=== PATIENT | female | born 1990 | race Caucasian/White ===

== ENCOUNTER 2018-09-27 17:39 | Inpatient (IN) | payer MEDICAID ==
[~2018-09-27] VITALS: Ht 144.8 cm; Wt 58.8 kg
[2018-09-27] MEDS ORDERED: PREN-93 PO (18:03)
[2018-09-27 18:04] VITALS: BP 109/69; PULSE 69; RESP 18; Ht 144.8 cm; Wt 58.8 kg
[2018-09-27] MEDS ORDERED: LACTATED RINGER'S 1,000 ML IV SCH (18:20)
[2018-09-27] MEDS ORDERED: METHYLERGONOVINE 0.2 MG INJ IM PRN (18:30)
[2018-09-27] MEDS ORDERED: LIDOCAINE 1% (MPF) 30 ML INJ INJ PRN (18:30)
[2018-09-27] MEDS ORDERED: AMPICILLIN 2 GM/NS (PMX) 100 ML IV ONE (18:30)
[2018-09-27] MEDS ORDERED: OXYTOCIN 30 UNITS/LR 500 ML IV SCH ×2 (18:30→23:35)
[2018-09-27] MEDS ORDERED: CARBOPROST 250 MCG INJ IM PRN (18:30)
[2018-09-27] MEDS ORDERED: MISOPROSTOL 200 MCG TAB PR PRN (18:30)
[2018-09-27] MEDS ORDERED: OXYTOCIN 30 UNITS/LR 500 ML IV PRN (18:30)
[2018-09-27] MEDS ORDERED: IBUPROFEN 600 MG TAB PO PRN (18:30)
[2018-09-27] MEDS ORDERED: BUTORPHANOL 2 MG INJ IV PRN (18:30)
--- NOTE | 2018-09-27 18:31 | TRIAGE ---
OB Triage Datetime Report Generated by CPN: 09/27/2018 18:31 Datetime: 09/27/2018 18:07 Vaginal Exam Dilatation (cms): 3.0 Effacement (%): 70 Station: -2 Exam By: OZIEL Vaginal Bleeding: None Cervix, Consistency: Soft Cervix, Position: Midposition Datetime: 09/27/2018 18:00 Assessment Type: Triage Maternal Assessment Level of Consciousness: Fully Conscious DTR's/Clonus: DTRs 2+; No Clonus Headache: Denies Blurred Vision: No Respiratory Effort: Unlabored; Regular Rhythm; Equal Expansion Breath Sounds, Left: Clear and Equal Breath Sounds, Right: Clear and Equal Nausea/Vomiting: Denies RUQ Epigastric Pain: Denies Lower Extremities Edema: None Degree: None Upper Extremities Edema: None Degree: None Facial Edema: None Fall Risk Assessment History of Falling: (0) No Secondary Diagnosis: (0) No Ambulatory Aid: (0) Bedrest/Nurse Assist IV Therapy: (0) No Gait: (0) Normal/Bedrest/Immobile Mental Status: (0) Oriented to Own Ability Fall Score: 0 Fall Risk Score Definition: No Risk: No action required Datetime: 09/27/2018 17:56 Time of Arrival: 09/27/2018 17:21 EGA: 37.6 Arrived By: Ambulatory Arrived From: Home Chief Complaint: PT. HERE C/O UC'S SINCE 1400 Movement: Present Contractions: Irregular Rupture of Membranes: Denies Vaginal Bleeding: None Vaginal Discharge: Denies Recent Sexual Intercouse: Denies Abdominal Trauma: Not Applicable Patient Complaints: Contractions; Cramping; Back Pain Time Provider Notified: 09/27/2018 18:20 Provider Notified: LITTLE Initial Plan: EFM/SVE Datetime: 09/27/2018 17:40 Labor Evaluation Monitor Mode: External Heart Rate Monitor Mode: External US
[2018-09-27] MEDS ORDERED: AMPICILLIN 1 GM/NS (PMX) 50 ML IV SCH (22:30)
[2018-09-27] MEDS: OXYTOCIN 30 UNITS/LR 500 ML IV SCH ×2 (23:00→23:36)
--- NOTE | 2018-09-27 23:33 | HP ---
Date/Time of Note Date/Time of Note DATE: 09/27/18 TIME: 23:30 OB - History Hx of Present Free Text/Dictation September 27, 2018 : 2 Para: 1 Spontaneous : 0 Obstetrical Complications: None Other Concerns: 28-year-old G2, P1 with IUP at 37 weeks and 6 days presented in labor. care with Dr. Walker. No records are available except limited labs. GBS is negative. Patient denies any complication during her course. She was 3 cm/70/-2 vertex presentation. She was admitted for labor management. Past Family/Social History * Past Medical, Surgical, Family and Obstetric Histories reviewed from chart. Blood Type: O+ RPR/VDRL: Negative GBS Status: Negative HBsAG: Negative OB Admission Exam Vital Signs Vital Signs Vital Signs Date Temp Pulse Resp B/P (MAP) Pulse Ox O2 O2 Flow FiO2 Time Delivery Rate 09/27/18 98.7 69 18 109/69 Room Air 18:04 (82) Physical Exam HEENT: WNL Lungs: Clear Abdomen: WNL Extremities: Normal Cervical Dilatation: 3cm Effacement: 75% Station: -2 Membranes: Intact Heart Rate: 130's Accelerations: Accelerations Present Decelerations: No Decelerations Varibility: Moderate Contractions on Admission: < 5 Minutes Apart Intensity: Moderate Last 72 hours Lab Results CBC & BMP 09/27/18 18:50 OB Assessment/Plan Other Assessment: IUP at 37 weeks and 6 days Labor GBS negative Patient will be admitted for labor management Anticipate Obtain rest of the labs Epidural she desires when in active labor GARRETT VIEIRA MD September 27, 2018 23:33
--- NOTE | 2018-09-27 23:35 | LDN ---
Date/Time of Note Date/Time of Note DATE: 09/27/18 TIME: 23:33 Delivery Summary September 27, 2018 Weeks of Gestation 37 weeks and 6 days Placenta Delivered: Spontaneously Meconium: none Episiotomy: No Indication for episiotomy N/A Perineal laceration: 1 Laceration repair: First-degree left labial laceration repaired using 3-0 chromic Anesthesia type: None Estimated blood loss: 200 Sponge & Needle done & correct: Yes Any foreign bodies felt in the: No Infant Delivery Information Sex Infant Sex: female Apgars 1 Minute: 8 5 Minute: 9 Suctioning Nose & mouth suctioned at livan: Yes Delee suction performed: Yes Umbilical Cord Umbilical cord with: 3 Vessels Cord presentations: nuchal cord Nuchal cord present X: 1 Cord Blood was obtained: Yes Mother & Baby Disposition Disposition Tight nuchal cord noted at the time of delivery and release Placenta delivered complete and intact Fundus was firm at the end of the delivery First-degree left labial laceration repaired using 3-0 chromic after local infiltration with lidocaine Hemostasis complete GARRETT VIEIRA MD September 27, 2018 23:35
[2018-09-28] MEDS ORDERED: CARBOPROST 250 MCG INJ IM PRN
[2018-09-28] MEDS ORDERED: ACETAMINOPHEN 325 MG TAB PO PRN
[2018-09-28] MEDS ORDERED: NACL 0.9% 3 ML SYG IV SCH
[2018-09-28] MEDS ORDERED: HYDROCODONE/APAP (5/325) TAB PO PRN
[2018-09-28] MEDS ORDERED: OXYTOCIN 30 UNITS/LR 500 ML IV PRN
[2018-09-28] MEDS ORDERED: METHYLERGONOVINE 0.2 MG TAB PO PRN
[2018-09-28] MEDS ORDERED: LANOLIN HPA 1 PKT TOP PRN
[2018-09-28] MEDS ORDERED: MISOPROSTOL 200 MCG TAB PR PRN
[2018-09-28] MEDS ORDERED: ONDANSETRON 4 MG INJ IV PRN
[2018-09-28] MEDS ORDERED: ZOLPIDEM 5 MG TAB PO PRN
[2018-09-28] MEDS ORDERED: DIPHENHYDRAMINE 25 MG CAP PO PRN
[2018-09-28] MEDS ORDERED: METHYLERGONOVINE 0.2 MG INJ IM PRN
[2018-09-28 01:10] VITALS: BP 102/58; PULSE 68; RESP 20
[2018-09-28 04:51] VITALS: BP 115/64; PULSE 70; RESP 20
[2018-09-28] MEDS: IBUPROFEN 600 MG TAB PO SCH ×5 (05:25→23:42)
[2018-09-28 08:00] VITALS: BP 97/60; PULSE 67; RESP 18
[2018-09-28] MEDS: SENNA/DOCUSATE NA (8.6MG/50MG) TAB PO SCH ×3 (08:52→23:42)
[2018-09-28 16:00] VITALS: BP 91/52; PULSE 72; RESP 16
[2018-09-28 20:15] VITALS: BP 97/53; PULSE 71; RESP 18
[2018-09-29 03:56] VITALS: BP 98/51; PULSE 73; RESP 18
[2018-09-29] MEDS: IBUPROFEN 600 MG TAB PO SCH ×3 (05:50→18:34)
[2018-09-29 08:00] VITALS: BP 99/49; PULSE 66; RESP 18
--- NOTE | 2018-09-29 08:23 | DS ---
Date/Time of Note Date/Time of Note DATE: 09/29/18 TIME: 08:22 Discharge Summary Admission/Discharge Info Admit Date/Time September 27, 2018 at 18:15 Discharge Date/Time Discharge Diagnosis term Patient Condition: Stable Hospital Course unremarkable Home Meds Reported Medications Vit No.124/Iron/FA ( Vitamin Tablet) 1 Each Tablet, 1 EACH PO DAILY, TAB 09/27/18 Primary Care Provider Care Physician No Primary Pending Labs Laboratory Tests Test 09/28/18 08:35 White Blood Count 15.3 10^3/ul (4.8-10.8) Red Blood Count 3.71 10^6/ul (4.20-5.40) Hemoglobin 11.3 g/dl (12.0-16.0) Hematocrit 33.1 % (37.0-47.0) Mean Corpuscular Volume 89.2 fl (82.0-101.0) Mean Corpuscular Hemoglobin 30.5 pg (29.0-33.0) Mean Corpuscular Hemoglobin Concent 34.1 g/dl (32.0-37.0) Red Cell Distribution Width 13.1 % (11.5-14.5) Platelet Count 185 10^3/UL (140-415) Mean Platelet Volume 10.7 fl (7.4-10.4) Immature Granulocytes % 0.700 % (0.001-0.429) Neutrophils % 80.2 % (39.0-77.0) Lymphocytes % 11.6 % (15.0-51.0) Monocytes % 6.6 % (0.0-11.0) Eosinophils % 0.7 % (0.0-7.0) Basophils % 0.2 % (0.0-2.0) Nucleated Red Blood Cells % 0.0 /100WBC (0.0-0.0) Immature Granulocytes # 0.100 10^3/ul (0.0-0.031) Neutrophils # 12.3 10^3/ul (1.6-7.5) Lymphocytes # 1.8 10^3/ul (0.8-2.9) Monocytes # 1.0 10^3/ul (0.3-0.9) Eosinophils # 0.1 10^3/ul (0.0-0.5) Basophils # 0.0 10^3/ul (0.0-0.1) Nucleated Red Blood Cells # 0.0 10^3/ul (0.0-0.0) JERE FITCH MD September 29, 2018 08:23
[2018-09-29] MEDS: SENNA/DOCUSATE NA (8.6MG/50MG) TAB PO SCH (08:43)
[2018-09-29] MEDS ORDERED: DIPHTH/TET/ACEL PERTUSS (ADULT) 0.5 ML VIAL IM* ONE (09:00)
[2018-09-29] MEDS ORDERED: VARICELLA VACCINE LIVE/PF 1,350 UNIT/0.5 ML ML SC* ONE (09:00)
[2018-09-29] MEDS ORDERED: MEASLES,MUMPS,RUBELLA VACCINE INJ SC* ONE (09:00)
[2018-09-29 16:30] VITALS: BP 91/53; PULSE 80; RESP 16
--- NOTE | 2018-09-30 19:02 | DELSUM ---
Delivery Summary A-C Datetime Report Generated by CPN: 09/30/2018 19:02 DELIVERY PERSONNEL Crematory Attendant: Sandoval, Jess MATERNAL INFORMATION Delivery Anesthesia: Local Medications in Delivery: 30 UNITS PITOCIN Delivery QBL (ml): 200 Placenta Cultured: No Maternal Complications: None LABOR SUMMARY EDC: 10/12/2018 00:00 No. Babies in Womb: 1 Attempted: No Labor Anesthesia: None LABOR INFORMATION Reason for Induction: Not Applicable Onset of Labor: 09/27/2018 14:00 Complete Dilatation: 09/27/2018 22:25 Oxytocin: N/A Group B Beta Strep: Negative Antibiotics # of Doses: 0 Steroids Given: None Reason Steroids Not Administered: Not Applicable MEMBRANES Membranes Rupture Method: Artificial Rupture of Membranes: 09/27/2018 22:31 Length of Rupture (hr): 0.12 Amniotic Fluid Color: Clear Amniotic Fluid Amount: Moderate Amniotic Fluid Odor: None STAGES OF LABOR Stage 1 hr: 8 Stage 1 min: 25 Stage 2 hr: 0 Stage 2 min: 13 Stage 3 hr: 0 Stage 3 min: 3 Total Time in Labor hr: 8 Total Time in Labor min: 41 VAGINAL DELIVERY Laceration Extension: First Degree Laceration Type: Perineal Laceration Repair: Yes Initial Vag Sponge Count: 10 Final Vag Sponge Count: 10 Initial Vag Sharps Count: 1+1 Final Vag Sharps Count: 2 Sponge Count Correct: Yes; Vaginal Sweep Performed Sharps Count Correct: Yes BABY A INFORMATION Infant Delivery Date/Time: 09/27/2018 22:38 Method of Delivery: Vaginal Born in Route : No : N/A Forceps: N/A Vacuum Extraction: N/A Shoulder Dystocia : N/A SHOULDER DYSTOCIA BABY A Delivery Date/Time: 09/27/2018 22:38 PRESENTATION/POSITION BABY A Presentation: Cephalic Cephalic Presentation: Vertex Breech Presentation: N/A PLACENTA INFORMATION BABY A Placenta Delivery Time : 09/27/2018 22:41 Placenta Method of Delivery: Expressed Placenta Status: Delivered SCORES BABY A Heart Rate 1 min: >100 bpm Resp Effort 1 min: Good Cry Reflex Irritability 1 min: Cough/Sneeze/Pulls Away Muscle Tone 1 min: Active Motion Color 1 min: Blue/Pale Resuscitation Effort 1 min: Tactile Stimulation SCORE 1 MIN: 8 Heart Rate 5 min: >100 bpm Resp Effort 5 min: Good Cry Reflex Irritability 5 min: Cough/Sneeze/Pulls Away Muscle Tone 5 min: Active Motion Color 5 min: Body [place], Extremit Blue Resuscitation Effort 5 min: Tactile Stimulation SCORE 5 MIN: 9 INFORMATION BABY A Gestational Age at Delivery: 37.6 Gestational Status: Early Term- 37- 38.6 Weeks Infant Outcome : Liveborn Condition : Stable Infant Sex: Female IDENTIFICATION/MEDS BABY A ID Band Number: [id number] ID Band Location: Right Leg; Left Arm Sensor Applied: Yes Sensor Number: [id number] Sensor Location : Cord Clamp Vitamin K Given : Not Given Erythromycin Given: Not Given WEIGHT/LENGTH BABY A Infant Birthweight (gm): 3010 Weight (lb): 6 Weight (oz): 10 Infant Length (in): 19.00 Infant Length (cm): 48.26 CORD INFORMATION BABY A No. Cord Vessels: 3 Nuchal Cord : Around Neck x1, Tight Cord Blood Taken: Yes Infant Suction: Mouth; Nose ASSESSMENT BABY A Complications: None Physical Findings at Delivery: Within Normal Limits Infant Respirations: Appears Normal Ordnance Equipment Worker/ALS Called : No Infant Care By: ASHWINI Transferred To: Remains with Mother
== END 2018-09-29 19:02 | disposition home or self-care (01) | DRG 807 ==
LOC: OBT 17:39 → L-D 17:40 → OBT 18:15 → L-D 18:15 → PP1 09-28 01:14
PROVIDERS: ADMIT Obstetrics & Gynecology; ATTEND Obstetrics & Gynecology
PROC: 10E0XZZ Delivery of Products of Conception, External Approach (ICD-10-PCS; principal; 2018-09-27)
PROC: 0W8NXZZ Division of Female Perineum, External Approach (ICD-10-PCS; 2018-09-27)
PROC: 3E033VJ Introduction of Other Hormone into Peripheral Vein, Percutaneous Approach (ICD-10-PCS; 2018-09-27)
DX: O70.0 First degree perineal laceration during delivery (principal); O69.81X0 Labor and delivery complicated by cord around neck, without compression, not applicable or unspecified; Z3A.37 37 weeks gestation of pregnancy; Z37.0 Single live birth
CPT/HCPCS: 85025; 85610; 85730; 86592; 86762; 86850; 86900; 86901; 87340; 90715; 90716; G0463; J2590; J7120